=== PATIENT | female | born 1955 | race Two or more races ===

== ENCOUNTER 2019-02-25 11:55 | Emergency (ER) | payer OTHER ==
[~2019-02-25] VITALS: Ht 170.2 cm; Wt 57.2 kg
[2019-02-25 12:15] VITALS: BP 112/69
== END 2019-02-25 12:32 | disposition home or self-care (01) ==
LOC: ER 12:09
DX: S50.11XA Contusion of right forearm, initial encounter (principal); H92.02 Otalgia, left ear; Z88.6 Allergy status to analgesic agent; W55.01XA Bitten by cat, initial encounter; Y92.89 Other specified places as the place of occurrence of the external cause; Y99.8 Other external cause status